=== PATIENT | female | born 1990 | race African-American/Black ===

== ENCOUNTER 2022-03-30 16:09 | Emergency (ER) | payer SELFPAY | END 2022-03-30 16:58 | disposition home or self-care (01) | LOC: NAV ERS 16:09 → EDBD 16:09 → NAV ERS 16:58 | DX: M54.12 Radiculopathy, cervical region (principal); I10 Essential (primary) hypertension; Z79.899 Other long term (current) drug therapy | CPT/HCPCS: 93005 ==

== ENCOUNTER 2022-05-04 17:33 | Emergency (ER) | payer OTHER, SELFPAY ==
[2022-05-04] MEDS ORDERED: Fluorescein Opthalmic Strip ONE (17:51)
[2022-05-04] MEDS ORDERED: Tetracaine 0.5% PF 4 ML BOT ONE (17:51)
[2022-05-04] MEDS ORDERED: Ibuprofen 800 MG TAB ONE (18:32)
== END 2022-05-04 18:41 | disposition home or self-care (01) ==
LOC: NAV ERS 17:33
DX: S05.92XA Unspecified injury of left eye and orbit, initial encounter (principal); I10 Essential (primary) hypertension; Z79.899 Other long term (current) drug therapy; Y04.2XXA Assault by strike against or bumped into by another person, initial encounter
CPT/HCPCS: 99283